=== PATIENT | male | born 1985 | race Two or more races ===

== ENCOUNTER 2021-12-24 13:13 | Emergency (ER) | payer SELFPAY ==
[2021-12-24 13:34] VITALS: BP 129/83; PULSE 79; RESP 18; TEMP 97.9; BMI 37.6
== END 2021-12-24 14:48 | disposition home or self-care (01) ==
LOC: JERFT 13:13
DX: M26.609 Unspecified temporomandibular joint disorder, unspecified side (principal)
CPT/HCPCS: 99282-25

== ENCOUNTER 2023-10-01 05:03 | Emergency (ER) | payer SELFPAY ==
[2023-10-01 05:17] VITALS: BP 128/83; PULSE 95; RESP 20; TEMP 98.4; BMI 34.9
== END 2023-10-01 06:59 | disposition home or self-care (01) ==
LOC: JER 05:03
DX: R05.9 Cough, unspecified (principal); R06.02 Shortness of breath; Z20.822 Contact with and (suspected) exposure to COVID-19
CPT/HCPCS: 0241U-QW; 71046-TC-FY; 99284-25